=== PATIENT | male | born 1970 | race Caucasian/White ===

== ENCOUNTER → 2017-04-05 | Outpatient (CLI) | payer BC ==
--- NOTE | 2017-04-05 13:52 | DI ---
XR KNEE CMPT 4 OR MORE VWS,04/05/2017 10:17 AM: Clinical History: Posterior right knee pain. Previous Exam: None at this facility. Findings: Multiple views of the right knee are obtained, and demonstrate anatomic alignment without fractures. Surrounding soft tissues are unremarkable. Joint spaces are preserved. Impression: Normal right knee.
== END ==
LOC: MOB RAD 10:18
DX: M25.561 Pain in right knee (principal); V20.4XXA Motorcycle driver injured in collision with pedestrian or animal in traffic accident, initial encounter
CPT/HCPCS: 73564